=== PATIENT | male | born 1995 | race Caucasian/White ===

== ENCOUNTER 2016-08-14 16:34 | Emergency (ER) | payer BC ==
[~2016-08-14 16:34] MED LIST: HYDR25SU4 RC
[2016-08-14 16:40] VITALS: BP 137/85
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
[2016-08-14] MEDS ORDERED: HYDROCODONE/APAP 5/325MG TABLET. PO ONE (17:40)
[2016-08-14] MEDS ORDERED: IBUPROFEN 600 MG TABLET. PO ONE (17:40)
--- NOTE | 2016-08-15 09:01 | RAD ---
Indication: Football injury with pain. Technique: 3 views of the left knee are submitted for review. No comparison is available. Findings: There is no fracture or dislocation. There is no joint effusion or soft tissue swelling. Impression: Negative for fracture.
== END 2016-08-14 18:10 | disposition home or self-care (01) ==
LOC: ER 16:34
DX: S83.92XA Sprain of unspecified site of left knee, initial encounter (principal); X58.XXXA Exposure to other specified factors, initial encounter; Y93.61 Activity, american tackle football; Y99.8 Other external cause status; Y92.89 Other specified places as the place of occurrence of the external cause
CPT/HCPCS: 73562; 99284

== ENCOUNTER 2020-05-05 22:17 | Emergency (ER) | payer OTHER, BC ==
[~2020-05-05] VITALS: Ht 180.3 cm; Wt 136.2 kg
[2020-05-05] MEDS ORDERED: IBUPROFEN 600 MG TABLET. PO ONE (23:00)
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
--- NOTE | 2020-05-06 00:28 | RAD ---
CT CHEST WO CONTRAST History: Abnormal chest x-ray. Technique: Noncontrast CT of the chest was performed. Coronal and sagittal reconstructions were performed. Exposure: One or more of the following individualized dose reduction techniques were utilized for this examination: 1. Automated exposure control 2. Adjustment of the mA and/or kV according to patient size 3. Use of iterative reconstruction technique. Comparison: Chest x-ray May 05, 2020. CT November 22, 2015 Findings: Chest: Mildly prominent precarinal lymph node measures 1.9 x 0.6 cm. No consolidation or pleural effusion. No pneumothorax. Residual thymus within the anterior mediastinum. Right upper lobe cluster of nodules largest measures 0.8 x 0.7 cm (series 2 image 49). Numerous additional 2 to 3 mm right upper lobe pulmonary nodules. 3 mm right lower lobe pulmonary nodule (series 2 image 68), decreased compared to prior. 2 mm left lower lobe nodule (image 63).. Upper abdomen: Multiple small upper abdominal lymph nodes. Bones: No pathologic osseous lesions. Impression: 1. Right upper lobe cluster of nodules with multiple additional small nodules, may represent infectious or inflammatory process. Recommend short-term follow-up to ensure resolution. 2. Mildly prominent mediastinal and enteric lymph nodes, likely reactive. Recommend attention on follow-up. Electronically signed by: Bang Fontanez DO (05/06/2020 12:25 AM) [facility]
[2020-05-06 00:40] VITALS: BP 153/91
== END 2020-05-06 00:40 | disposition home or self-care (01) ==
LOC: ER 22:17
DX: R07.9 Chest pain, unspecified (principal); R91.8 Other nonspecific abnormal finding of lung field; V43.52XA Car driver injured in collision with other type car in traffic accident, initial encounter; Y93.I9 Activity, other involving external motion; Y92.89 Other specified places as the place of occurrence of the external cause; Y99.8 Other external cause status
CPT/HCPCS: 71045; 71250; 99284

== ENCOUNTER 2021-05-09 21:58 | Emergency (ER) | payer BC, OTHER ==
[~2021-05-09] VITALS: Ht 180.3 cm; Wt 136.2 kg
[2021-05-09 22:24] VITALS: BP 155/85
[2021-05-09] MEDS ORDERED: ACETAMINOPHEN 500 MG TABLET PO ONE (23:00)
[2021-05-09] MEDS ORDERED: IBUPROFEN 600 MG TABLET. PO ONE (23:00)
[2021-05-09] MEDS ORDERED: guaiFENesin/CODEINE 100mg/10mg 5 ML LIQUID PO ONE (23:00)
--- NOTE | 2021-05-09 23:03 | PHYS DOC ---
Past History Past Medical History: No Pertinent History Past Surgical History: Tonsillectomy, Other Additional Past Surgical Histo: ACL REPAIR Alcohol Use: Rarely Drug Use: None Adult General Chief Complaint Chief Complaint: CONGESTION HPI HPI Patient is a 25-year-old male who presents with a chief complaint of fever, cough and nasal congestion for the last several days. States he had 2 Covid tests last week with the last one being that were both negative. Denies any recent traumas, travels, chest pain, shortness of breath, abdominal pain, nausea, vomiting. States he is eating and drinking normally for him. States he is making urine and stool normally for him. States he has not taken any medicine today. Review of Systems Review of Systems Review of systems otherwise unremarkable except noted in HPI Allergies Allergies Allergies Coded Allergies Type Severity Reaction Last Updated Verified No Known Drug Allergies 04/05/14 No Physical Exam Physical Exam Constitutional: Well developed, well nourished, no acute distress, non-toxic appearance. [] HENT: Normocephalic, atraumatic, bilateral external ears normal, bilateral tympanic membranes normal, oropharynx moist, no oral exudates, nose normal. [] Eyes: conjunctiva normal, no discharge. [] Neck: Normal range of motion, no tenderness, supple, no stridor. [] Cardiovascular:Heart rate regular rhythm, no murmur [] Lungs & Thorax: No respiratory distress, no wheezing, no increased work of breathing, mild congestion Abdomen: soft, no tenderness, no masses, no pulsatile masses. [] Skin: Warm, dry, no erythema, no rash. [] Extremities: No tenderness, no cyanosis, no clubbing, ROM intact, no edema. [] Neurologic: Alert and oriented X 3, no focal deficits noted. [] Psychologic: Affect normal, judgement normal, mood normal. [] Current Patient Data Vital Signs Vital Signs Date Time Temp Pulse Resp B/P (MAP) Pulse Ox O2 Delivery O2 Flow Rate FiO2 05/09/21 22:24 100.4 105 18 155/85 (108) 97 Room Air EKG EKG [] Radiology/Procedures Radiology/Procedures [] FINDINGS: Lungs: Normal lung volume. No pulmonary mass or consolidation. The tracheobronchial tree and hilar structures are normal. Pleura: No pleural effusion or pneumothorax. Heart and Mediastinum: The cardiomediastinal silhouette is normal. The great vessels of the thorax are normal. Bones and Soft Tissues: The bones and soft tissues are within normal limits. IMPRESSION: No acute cardiopulmonary process. Electronically signed by: Florentin Espitia MD (05/09/2021 11:18 PM) [facility] Heart Score C/O Chest Pain: No Risk Factors: Risk Factors: DM, Current or recent (<one month) smoker, HTN, HLP, family history of CAD, obesity. Risk Scores: Risk Factors: DM, Current or recent (<one month) smoker, HTN, HLP, family history of CAD, obesity. Course & Med Decision Making Course & Med Decision Making Patient is a 25-year-old male who presents with fever, cough and nasal congestion Vital signs notable for low-grade fever, low-grade tachycardia and hypertension. Physical exam noted above. Given medications for symptom control. Chest x-ray not concerning. Discussed all findings with patient. Advised on symptom management at home. Advised to follow-up with primary care physician on Tuesday. Gave return precautions to the ED. Patient grateful, verbalized understanding and agreed with plan of discharge. [] Dragon Disclaimer Dragon Disclaimer This electronic medical record was generated, in whole or in part, using a voice recognition dictation system. Departure Departure: Impression: Primary Impression: Cough Additional Impression: Congestion of upper airway Disposition: 01 HOME / SELF CARE / HOMELESS Condition: GOOD Referrals: EVARISTO FISH (PCP) Patient Instructions: Viral Syndrome Additional Instructions: Thank you for coming into the emergency department tonight and allowing us to take care of you. Please read the attached information carefully to go back over some of the things we discussed. Please continue a Tylenol, ibuprofen and Benadryl regimen as needed. Please follow-up first thing Tuesday with your primary care physician update on your ED visit and set up a follow-up. Please come back with new or concerning symptoms as discussed. Problem Qualifiers ISELA HILL MD May 09, 2021 23:03
--- NOTE | 2021-05-09 23:20 | RAD ---
XR CHEST 1V INDICATION: fever, cough, sinus pressure times 1 week / Spl. Instructions: / History: . COMPARISON STUDY: 05/05/2020. FINDINGS: Lungs: Normal lung volume. No pulmonary mass or consolidation. The tracheobronchial tree and hilar st ructures are normal. Pleura: No pleural effusion or pneumothorax. Heart and Mediastinum: The cardiomediastinal silhouette is normal. The great vessels of the thorax ar e normal. Bones and Soft Tissues: The bones and soft tissues are within normal limits. IMPRESSION: No acute cardiopulmonary process. Electronically signed by: Floretnin Espitia MD (05/09/2021 11:18 PM) [facility]
== END 2021-05-09 23:55 | disposition home or self-care (01) ==
LOC: ER 21:58
DX: R05.9 Cough, unspecified (principal); R09.81 Nasal congestion; R50.9 Fever, unspecified
CPT/HCPCS: 71045; 99283

== ENCOUNTER 2021-05-12 17:28 | Emergency (ER) | payer OTHER ==
[~2021-05-12] VITALS: Ht 180.3 cm; Wt 139.2 kg
[2021-05-12 17:47] VITALS: BP 143/80
--- NOTE | 2021-05-12 18:04 | PHYS DOC ---
Past History Past Medical History: No Pertinent History Past Surgical History: Tonsillectomy, Other Additional Past Surgical Histo: ACL REPAIR Alcohol Use: Rarely Drug Use: None General Adult EDM: Chief Complaint: OTHER COMPLAINTS HPI: HPI: Patient is a 25-year-old male that presents today with cough, congestion, on again off again fever, and loss of taste and smell. Patient states his symptoms started last week early Tuesday or Tuesday, patient states he had 2 - test last week for Covid, patient arrived to the emergency department here at [facility] on Tuesday the , was seen and diagnosed with cough and was to follow-up with his primary care physician as symptoms did not get better. Patient states that his significant other at home is now positive for COVID-19 and he is requesting a test for this. He states he has not had a fever for the last 48 hours but continues to have lost of taste and smell. Review of Systems: Review of Systems: Constitutional: Denies fever or chills Eyes: Denies change in visual acuity HENT: Nasal congestion Respiratory: Cough Cardiovascular: Denies chest pain or edema GI: Denies abdominal pain, nausea, vomiting, bloody stools or diarrhea : Denies dysuria Musculoskeletal: Denies back pain or joint pain Integument: Denies rash Neurologic: Loss of taste and smell Endocrine: Denies polyuria or polydipsia Lymphatic: Denies swollen glands Psychiatric: Denies depression or anxiety Allergies: Allergies: Allergies Coded Allergies Type Severity Reaction Last Updated Verified No Known Drug Allergies 04/05/14 No Physical Exam: PE: Constitutional: Well developed, well nourished, no acute distress, non-toxic appearance. [] HENT: Normocephalic, atraumatic, bilateral external ears normal, oropharynx moist, no oral exudates, nose normal. [] Eyes: PERRLA, EOMI, conjunctiva normal, no discharge. [] Neck: Normal range of motion, no tenderness, supple, no stridor. [] Cardiovascular:Heart rate regular rhythm, no murmur [] Lungs & Thorax: Bilateral breath sounds clear to auscultation [] Abdomen: Bowel sounds normal, soft, no tenderness, no masses, no pulsatile masses. [] Skin: Warm, dry, no erythema, no rash. [] Back: No tenderness, no CVA tenderness. [] Extremities: No tenderness, no cyanosis, no clubbing, ROM intact, no edema. [] Neurologic: Alert and oriented X 3, normal motor function, normal sensory function, no focal deficits noted. [] Psychologic: Affect normal, judgement normal, mood normal. [] Current Patient Data: Labs: Laboratory Tests Test 05/12/21 17:59 Influenza Type A (Rapid) Negative Influenza Type B (Rapid) Negative Vital Signs: Vital Signs Date Time Temp Pulse Resp B/P (MAP) Pulse Ox O2 Delivery O2 Flow Rate FiO2 05/12/21 17:47 99.0 90 16 143/80 (101) 98 Room Air EKG: EKG: [] Radiology/Procedures: Radiology/Procedures: Radiological images were reviewed from April visit [] Heart Score: C/O Chest Pain: N/A Risk Factors: Risk Factors: DM, Current or recent (<one month) smoker, HTN, HLP, family history of CAD, obesity. Risk Scores: Score 0 - 3: 2.5% MACE over next 6 weeks - Discharge Home Score 4 - 6: 20.3% MACE over next 6 weeks - Admit for Clinical Observation Score 7 - 10: 72.7% MACE over next 6 weeks - Early Invasive Strategies Course & Med Decision Making: Course & Med Decision Making Pertinent Labs and Imaging studies reviewed. (See chart for details) 1851 patient given lab results regarding negative influenza patient informed that it will be 24 hours before his Covid test is back patient verbalizes understanding the need for for quarantine until his test results are back. If test results for Covid are negative patient has a viral syndrome, take [id number]-grn-[id number] decongestants, cough suppressants, Tylenol and/or ibuprofen as needed for pain and fever. Follow-up with his primary care physician in 5 to 7 days if no better Gab Disclaimer: Gab Disclaimer: This electronic medical record was generated, in whole or in part, using a voice recognition dictation system. Departure Departure: Impression: Primary Impression: Suspected 2019 novel coronavirus infection Additional Impression: Viral syndrome Disposition: HOME / SELF CARE / HOMELESS Condition: STABLE Referrals: EVARISTO FISH (PCP) Patient Instructions: Viral Syndrome Additional Instructions: Do not use Afrin. Flonase 2 sprays per nare twice daily [id number]-kbxyngj decongestants as labeled directed Cool-mist humidifier while sleeping to help with congestion as well Cyrus vapor rub also may help with congestion and cough You have been tested for or diagnosed with COVID-19. It is an infection caused by a new type of coronavirus. COVID-19 will cause cold-like or mild flu symptoms in most. It can cause more severe symptoms like problems breathing in some. There is no treatment for COVID-19. The body will clear the infection over time. Self-care will help to ease discomfort. Steps to Take: Self-Care Rest as needed. Healthy habits may help you feel better. Steps include: Choose healthy foods including fruits and vegetables. Drink water throughout the day. Get plenty of sleep each night. If you smoke, try to quit. It may ease breathing. Avoid alcohol. Keep Others Healthy The virus can spread to others. Droplets are released every time you sneeze or cough. The droplets can get into the mouth, nose, or eyes of people near you and lead to infection. To lower the chances of spreading COVID-19 to others: Stay at home until your doctor has said it is safe to leave. If you tested positive this will mean staying isolated until both of the following are true: At least 7 days have passed since the start of illness. You are free of fever for at least 72 hours without the use of medicine. During this time: - Avoid public areas, events, or transportation. Do not return to work or school until your doctor has said it is safe to do so. - Call ahead if you need to go to a medical center. Let them know you may have COVID-19. It will help them guide you where to go. They may also ask you to wear a facemask when you come to the office. - If you call for emergency medical services, let them know you may have COVID- 19. While at home: - Try to avoid close contact with others. Stay about 6 feet away. - If possible, spend most of your time in a separate room from others. - Use a face mask if you will be in close contact with others such as sharing a room or vehicle. - Have someone wipe down common surfaces in the home. Use household miller first every day on areas like doorknobs, counters, or sinks. - Cough or sneeze into a tissue. Throw the tissue away right after use. If a tissue is not available, cough or sneeze into your elbow. - Wash your hands often. Wash them after sneezing or coughing. Use soap and water and wash for at least 20 seconds. Alcohol based hand pool cleaner can be used if soap and water is not available. - Do not prepare food for others. Avoid sharing personal items like forks, spoons, or toothbrushes. - Avoid close contact with pets while you are sick. There is no evidence of the virus passing to pets. This is a safety step until more is known about this virus. Isolation can be frustrating. Social interaction can help. Keep in touch with friends and family through phone and tech options. You can still interact with others in your home, just keep a safe distance of about 6 feet. Follow-up: Your doctors office will check in with you to see if there are any changes in your health. You may be asked to keep track of symptoms to share with them. They will also l et you know when you are clear to be in public again. Problems to Look Out For: Contact your doctor if your recovery is not going as you expect. Get emergency care if you have problems such as: - Trouble breathing - Nonstop chest pain or pressure - Changes in awareness, confusion, or problems waking - Lips or face have bluish color - Worsening of symptoms If you think you have an emergency, call for emergency medical services right away. As taken from [facility] MERI WHATLEY APRN May 12, 2021 18:04
[2021-05-12 18:44] LABS: INFLUENZA A PATIENT NEGATIVE (NEGATIVE); INFLUENZA B PATIENT NEGATIVE (NEGATIVE)
== END 2021-05-12 19:05 | disposition home or self-care (01) ==
LOC: ER 17:28
DX: U07.1 COVID-19 (principal); B34.9 Viral infection, unspecified
CPT/HCPCS: 87804; 99282; C9803; U0003

== ENCOUNTER 2021-09-11 02:36 | Emergency (ER) | payer OTHER ==
[~2021-09-11] VITALS: Ht 180.3 cm; Wt 145.7 kg
[2021-09-11 02:40] VITALS: BP 150/85
--- NOTE | 2021-09-11 02:57 | PHYS DOC ---
Past History Past Medical History: No Pertinent History Past Surgical History: Tonsillectomy, Other Additional Past Surgical Histo: ACL REPAIR Alcohol Use: Rarely Drug Use: None General Adult EDM: Chief Complaint: EARACHE/EAR PAIN HPI: HPI: 26-year-old male presents with bilateral ear pain and a sore throat. He has had congestion for about a week but he feels like that is getting better. He has a sore throat and his ears have been intermittently achy. It has been 1 year and then the other. The patient is a 2-year-old who had a viral illness a week ago and got better. Patient denies fever or chills. Review of Systems: Review of Systems: Constitutional: Denies fever or chills Eyes: Denies change in visual acuity HENT: sore throat, ear pain. Respiratory: Denies cough or shortness of breath Cardiovascular: Denies chest pain or edema GI: Denies abdominal pain, nausea, vomiting, bloody stools or diarrhea : Denies dysuria Musculoskeletal: Denies back pain or joint pain Integument: Denies rash Neurologic: Denies headache, focal weakness or sensory changes Endocrine: Denies polyuria or polydipsia Lymphatic: Denies swollen glands Psychiatric: Denies depression or anxiety Allergies: Allergies: Allergies Coded Allergies Type Severity Reaction Last Updated Verified No Known Drug Allergies 04/05/14 No Physical Exam: PE: Constitutional: Well developed, well nourished, obese, no acute distress, non- toxic appearance. [] HENT: Normocephalic, atraumatic, bilateral external ears normal, oropharynx moist, no oral exudates, nose normal. Bilateral tympanic membranes within normal limits. [] Eyes: PERRLA, EOMI, conjunctiva normal, no discharge. [] Neck: Normal range of motion, no tenderness, supple, no stridor. [] Cardiovascular: Heart rate regular rhythm, no murmur [] Lungs & Thorax: Bilateral breath sounds clear to auscultation [] Abdomen: Bowel sounds normal, soft, no tenderness, no masses, no pulsatile masses. [] Skin: Warm, dry, no erythema, no rash. [] Back: No tenderness, no CVA tenderness. [] Extremities: No tenderness, no cyanosis, no clubbing, ROM intact, no edema. [] Neurologic: Alert and oriented X 3, normal motor function, normal sensory function, no focal deficits noted. [] Psychologic: Affect normal, judgement normal, mood normal. [] EKG: EKG: [] Radiology/Procedures: Radiology/Procedures: [] Heart Score: C/O Chest Pain: N/A Risk Factors: Risk Factors: DM, Current or recent (<one month) smoker, HTN, HLP, family history of CAD, obesity. Risk Scores: Score 0 - 3: 2.5% MACE over next 6 weeks - Discharge Home Score 4 - 6: 20.3% MACE over next 6 weeks - Admit for Clinical Observation Score 7 - 10: 72.7% MACE over next 6 weeks - Early Invasive Strategies Course & Med Decision Making: Course & Med Decision Making Pertinent Labs and Imaging studies reviewed. (See chart for details) The patient is negative for Covid or influenza. This is likely another viral illness. I have advised supportive care. He is stable for discharge at this time. [] Dragon Disclaimer: Dragon Disclaimer: This electronic medical record was generated, in whole or in part, using a voice recognition dictation system. Departure Departure: Impression: Primary Impression: Viral URI Disposition: HOME / SELF CARE / HOMELESS Condition: STABLE Referrals: EVARISTO FISH (PCP) Patient Instructions: Upper Respiratory Infection, Adult, Utsz-[id number] Scripts No Active Prescriptions or Reported Meds KRISTEN WONG DO Sep 11, 2021 02:57
[2021-09-11 03:58] LABS: INFLUENZA A PATIENT NEGATIVE (NEGATIVE); INFLUENZA B PATIENT NEGATIVE (NEGATIVE)
== END 2021-09-11 04:22 | disposition home or self-care (01) ==
LOC: ER 02:36
DX: J06.9 Acute upper respiratory infection, unspecified (principal); Z20.822 Contact with and (suspected) exposure to COVID-19
CPT/HCPCS: 87070; 87428; 87880; 99282